=== PATIENT | male | born 1955 | race Caucasian/White ===

== ENCOUNTER 2024-12-22 08:30 | Inpatient (IN) | payer MEDICARE, OTHER ==
[~2024-12-22] VITALS: Ht 177.8 cm; Wt 95.3 kg
[2024-12-22] MEDS ORDERED: FENTANYL PF 250MCG/5ML AMPUL ONE (12:48)
[2024-12-22] MEDS ORDERED: ROCURONIUM BROMIDE 50 MG/5 ML ONE (12:49)
[2024-12-22] MEDS ORDERED: LIDOCAINE 2%-EPI 1:100,000 30 ML VIAL ONE (13:00)
[2024-12-22] MEDS ORDERED: dexaMETHasone SOD PHOSPHATE 1 ML ONE (13:00)
[2024-12-22] MEDS ORDERED: OXYMETAZOLINE HCL NASAL SPRAY 30 ML BOTTLE NS ONE (13:00)
[2024-12-22] MEDS ORDERED: VANCOMYCIN 1 GM VIAL ONE (13:00)
[2024-12-22] MEDS ORDERED: FENTANYL PF 100MCG/2ML AMPUL ONE (15:20)
[2024-12-22] MEDS ORDERED: ESMOLOL INJ 100 MG/10 ML VIAL IV ONE (15:23)
[2024-12-22] MEDS: FENTANYL PF 100MCG/2ML AMPUL IV PRN (15:27)
[2024-12-22] MEDS ORDERED: ALBUTEROL HALF STRENGTH 1.25 MG/3 ML VIAL.NEB ONE (15:28)
[2024-12-22] MEDS ORDERED: ACETAMINOPHEN 325 MG TABLET PO PRN (16:30)
[2024-12-22] MEDS ORDERED: ONDANSETRON HCL/PF 4 MG/2 ML VIAL IV PRN (16:30)
[2024-12-22] MEDS: IV NS 0.9% 1,000 ML IV PRN (16:58)
[2024-12-22] MEDS: HYDROMORPHONE 1 MG/1 ML DISP.SYRIN IV PRN (18:19)
[2024-12-22] MEDS ORDERED: DEXTROSE 50%-WATER 50 ML DISP.SYRIN IV PRN (18:30)
[2024-12-22] MEDS ORDERED: ONDANSETRON HCL/PF 4 MG/2 ML VIAL IVP PRN (18:30)
[2024-12-22] MEDS ORDERED: Z GUARD REMEDY 4 OZ OINT TP PRN (18:30)
[2024-12-22] MEDS ORDERED: MAGNESIUM HYDROXIDE 30 ML UDC PO PRN (18:30)
[2024-12-22] MEDS ORDERED: MAG HYDROX/AL HYDROX/SIMETH 30 ML UDC PO PRN (18:30)
[2024-12-22] MEDS: ACETAMINOPHEN 325 MG TABLET PO PRN (18:52)
[2024-12-22 20:00] VITALS: BP 109/62; TEMP 97.3; O2SAT 95
[2024-12-22] MEDS: BLOOD SUGAR DIAGNOSTIC 1 EACH STRIP VI SCH (21:49)
[2024-12-22] MEDS: *INSULIN REGULAR(HUMULIN R)HUM 100 UNIT/ML VIAL SQ PRN (21:51)
[2024-12-23] MEDS: VANCOMYCIN 1 GM in IV D5W 250ml IV SCH (01:10)
[2024-12-23 06:35] LABS: PLATELET COUNT (AUTO) 226 K/uL (150-450); RED BLOOD CELL COUNT(AUTO) 5.70 MIL/uL (4.5-6.0); RED CELL DISTRIBUTION WIDTH 14.4 % (11.5-15.0); WHITE BLOOD COUNT (AUTO) 17.4 K/uL (4.3-11.0)
[2024-12-23] MEDS: INSULIN REGULAR, HUMAN 100 UNIT/ML 3 ML VIAL SQ PRN (06:47)
[2024-12-23 06:52] LABS: CALCIUM, SERUM 9.1 mg/dL (8.5-10.1); CREATININE 1.2 mg/dL (0.6-1.3); PHOSPHORUS 2.6 mg/dL (2.5-4.9); SODIUM SERUM 141.0 mmol/L (136-145); UREA NITROGEN, BLOOD 18.0 mg/dL (7-18)
[2024-12-23 08:58] VITALS: BP 120/78; TEMP 97.9; O2SAT 98
== END 2024-12-23 11:00 | disposition home or self-care (01) | DRG 908 ==
LOC: DS 08:30 → MED 13:09
PROVIDERS: ADMIT Internal Medicine; ATTEND Internal Medicine
PROC: 0NPW04Z Removal of Internal Fixation Device from Facial Bone, Open Approach (ICD-10-PCS; 2024-12-22)
PROC: 0NST04Z Reposition Right Mandible with Internal Fixation Device, Open Approach (ICD-10-PCS; 2024-12-22)
PROC: 0NPW07Z Removal of Autologous Tissue Substitute from Facial Bone, Open Approach (ICD-10-PCS; 2024-12-22)
PROC: 0NUV07Z Supplement Left Mandible with Autologous Tissue Substitute, Open Approach (ICD-10-PCS; 2024-12-22)
PROC: 0NUT07Z Supplement Right Mandible with Autologous Tissue Substitute, Open Approach (ICD-10-PCS; 2024-12-22)
PROC: 0NSV04Z Reposition Left Mandible with Internal Fixation Device, Open Approach (ICD-10-PCS; 2024-12-22)
PROC: 0NBT0ZX Excision of Right Mandible, Open Approach, Diagnostic (ICD-10-PCS; 2024-12-22)
PROC: 0NBV0ZX Excision of Left Mandible, Open Approach, Diagnostic (ICD-10-PCS; principal; 2024-12-22 12:30)
DX: T86.831 Bone graft failure (principal); S02.609A Fracture of mandible, unspecified, initial encounter for closed fracture; T84.318A Breakdown (mechanical) of other bone devices, implants and grafts, initial encounter; Y92.009 Unspecified place in unspecified non-institutional (private) residence as the place of occurrence of the external cause; X58.XXXA Exposure to other specified factors, initial encounter; Y83.2 Surgical operation with anastomosis, bypass or graft as the cause of abnormal reaction of the patient, or of later complication, without mention of misadventure at the time of the procedure; M60.9 Myositis, unspecified
CPT/HCPCS: 36415; 80048-TC; 82962-TC; 83735-TC; 84100-TC; 85025-TC; A4217; A4223; A4338; C1713; G0378; J0461; J0690; J1100; J1171; J1815; J2704; J3010; J3373; J3490; J7030; J7060